=== PATIENT | female | born 1990 | race Caucasian/White ===

== ENCOUNTER → 2018-01-29 | Outpatient (CLI) | payer OTHER ==
--- NOTE | 2018-01-29 15:58 | US ---
EXAMINATION TYPE: US OB anatomy transabd DATE OF EXAM: 01/29/2018 COMPARISON: NONE HISTORY: Z34.02 ENCOUNTER FOR SUPERVISION OF NORMAL TECHNIQUE: Transabdominal (TA) EXAM MEASUREMENTS: GESTATIONAL AGE / DATING Physician Established: (26 weeks/2 days) EDC: 05/05/2018 Dates by LMP: (26 weeks/2 days) EDC: 05/05/2018 Dates by First Scan: No previous Dates by Current Scan for: (27 weeks/1 days) EDC: 04/29/2018 SURVEY IUP: Single PLACENTA: Fundal PREVIA: No previa DORITA: 14.3 cm Normal CERVICAL LENGTH (transabdominal: norm > 3.0cm): 3.7 cm BIOMETRY PRESENTATION: Breech LIE: Longitudinal BPD: 6.7 cm 27 weeks / 0 days HC: 25.6 cm 27 weeks / 6 days AC: 22.0 cm 26 weeks / 4 days FL: 5.0 cm 27 weeks / 0 days ESTIMATED WEIGHT IN GRAMS: 981 grams ESTIMATED WEIGHT IN LBS/OZ: 2 lbs. 3 oz. WEIGHT PERCENTAGE BASED ON ESTABLISHED DATE: 59 % HC/AC: 1.16 Normal FL/AC: 23% Normal HEART RATE: 165 bpm RHYTHM: Normal ANATOMY SEEN (within normal limits): * Lateral Vent (< 1 cm) 0.4 cm * Cisterna Magna (< 1.1 cm) 0.55 cm * Nuchal Fold (< 0.6 cm) 0.3 cm * Cerebellum (varies with age) 3.2 cm Choroid Plexus (bilateral) Midline Falx Cavus Septi Pellucidi Four Chamber Heart Outflow tracts: LVOT Stomach Situs Nose / Lips Diaphragm Bladder Cord Insert Three Vessel Cord Longitudinal Spine Transverse Spine Arms (bilateral) Legs (bilateral) ANATOMY SEEN (does not appear within normal limits): Kidneys (bilateral)- bilateral prominent cystic appearing areas: normal renal pyramids vs other ANATOMY NOT SEEN (due to position): RVOT Patient is scheduled for an OB call back 02/16/2018 at 7:40AM. IMPRESSION: 1. Single intrauterine gestation estimated at 27 weeks 1 day gestation based on current ultrasound me asurements. This would've a calculated EDC of 04/29/2018. 2. Cardiac activity measures 165 bpm. 3. There is some limitation on portions of the anatomy some anatomy not visualized. The patient is sc heduled to return for additional imaging.
== END | disposition home or self-care (01) ==
LOC: RADUSWWP 10:56
PROVIDERS: ATTEND Obstetrics & Gynecology
DX: Z34.02 Encounter for supervision of normal first pregnancy, second trimester (principal); Z3A.27 27 weeks gestation of pregnancy
CPT/HCPCS: 76811

== ENCOUNTER → 2018-02-16 | Outpatient (CLI) | payer OTHER ==
--- NOTE | 2018-02-16 11:47 | US ---
EXAMINATION TYPE: US OB Call Back DATE OF EXAM: 02/16/2018 COMPARISON: NONE CLINICAL HISTORY: OB CALL BACK. GESTATIONAL AGE / DATING Dates by Initial Survey Scan: (27 weeks/1 days) EDC: 04/29/18 HEART RATE: 128 bpm RHYTHM: Normal ANATOMY SEEN (second anatomic survey look): RVOT Kidneys (bilateral): multiple anechoic areas again visualized within the kidneys Breech IMPRESSION: Similar appearance to previous exam, follow-up renal ultrasound recommended
== END | disposition home or self-care (01) ==
LOC: RADUSWWP 07:19
PROVIDERS: ATTEND Obstetrics & Gynecology
DX: Z53.9 Procedure and treatment not carried out, unspecified reason (principal)